=== PATIENT | female | born 1990 | race Caucasian/White ===

== ENCOUNTER 2018-12-18 07:26 | Emergency (ER) | payer MEDICAID ==
--- NOTE | 2018-12-18 07:53 | EDM.PDOC ---
ED HPI GENERAL MEDICAL PROBLEM - General Chief Complaint: ENT Problem Stated Complaint: LEFT SIDE OF FACE PAINS HER Time Seen by Provider: 12/18/18 07:53 Source of Information: Reports: Patient History Limitations: Reports: No Limitations - History of Present Illness INITIAL COMMENTS - FREE TEXT/NARRATIVE: Patient has been having left-sided head pain for the past 2 weeks. It has been getting progressively worse. Patient does have a history of migraines. Pain is a 6-7 out of 10. She says that she has never had a cavity. I did want to do a CT scan of the head and neck to rule out abscess however she is by about 4 or 5 weeks. Therefore I will be treating her empirically for a sphenoid sinus infection. She denies any swallowing of corruption or debris as far as dental abscess. She has 2 kids with her currently. She does find some relief with a warm pack. I did talk to her about the differential diagnosis. She has yet to establish a primary doctor and she will be doing that here shortly. Onset: Gradual Duration: Getting Worse Quality: Reports: Dull, Throbbing Severity: Moderate Improves with: Reports: Heat Therapy Worsens with: Reports: Cold Therapy Context: Denies: Sick Contact Associated Symptoms: Reports: Headaches, Loss of Appetite Treatments [employer]: Reports: Aspirin Left Face/Facial Pain Score (Numeric/FACES): 2 - Related Data Allergies Allergy/AdvReac Type Severity Reaction Status Date / Time nut - unspecified Allergy Other Verified 12/18/18 07:48 Home Meds: Home Meds Amoxicillin/Potassium Clav [Augmentin 875-125 Tablet] 1 each PO BID #14 tablet 12/18/18 [Rx] PNV95/Ferrous Fumarate/FA [ Tablet] 1 each PO DAILY 12/18/18 [History] 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 ED EXAM, DIZZINESS - Physical Exam Exam: See Below Exam Limited By: No Limitations General Appearance: Alert, Moderate Distress Ears: Normal External Exam, Normal Canal, Hearing Grossly Normal, Normal TMs, Mastoid Tenderness. No: Auricular Erythema, Auricular Ecchymosis, Canal Blood Nose: Normal Inspection Throat/Mouth: Normal Inspection Head Exam: Atraumatic, Sinus Tenderness (No TMJ pain per se. Left sphenoid pain. ) Neck: Normal Inspection, Supple, Lymphadenopathy (L) Respiratory/Chest: No Respiratory Distress, Lungs Clear Cardiovascular: Normal Peripheral Pulses, Regular Rate, Rhythm GI/Abdominal: Normal Bowel Sounds, Soft Neurological: Alert, Normal Mood/Affect Psychiatric: Normal Affect Skin Exam: Warm, Dry Course - Vital Signs Last Recorded V/S: Last Vital Signs Temp 36.4 C 12/18/18 07:30 Pulse 103 H 12/18/18 07:30 Resp 16 12/18/18 07:30 BP 105/68 12/18/18 07:30 Pulse Ox 97 12/18/18 07:30 - Orders/Labs/Meds Meds: Medications Discontinued Medications Generic Name Dose Route Start Last Admin Trade Name Freq PRN Reason Stop Dose Admin Ceftriaxone Sodium 1 gm 12/18/18 08:07 12/18/18 08:16 Rocephin IM 12/18/18 08:08 1 gm ONETIME ONE Administration Departure - Departure Time of Disposition: 08:23 Disposition: Home, Self-Care 01 Condition: Good Clinical Impression: Sphenoid sinusitis Qualifiers: Chronicity: acute Recurrence: not specified as recurrent Qualified Code(s): J01.30 - Acute sphenoidal sinusitis, unspecified - Discharge Information *PRESCRIPTION DRUG MONITORING PROGRAM REVIEWED*: No *COPY OF PRESCRIPTION DRUG MONITORING REPORT IN PATIENT SONDRA: Not Applicable Prescriptions: Amoxicillin/Potassium Clav [Augmentin 875-125 Tablet] 1 each PO BID #14 tablet Instructions: Sinusitis, Adult, [id number] Referrals: PCP,None [Primary Care Provider] - Forms: ED Department Discharge, ED Return to Work/School Form Additional Instructions: Emipirical treatment for Sphenoid Sinusitis. Take the antibiotics as written. Recommend Amna Villareal as a primary.
[2018-12-18] MEDS ORDERED: cefTRIAXone 1 GM Vial IM ONE (08:07)
== END 2018-12-18 08:37 | disposition home or self-care (01) ==
LOC: VM.ED 07:26
DX: J01.30 Acute sphenoidal sinusitis, unspecified (principal); Z91.018 Allergy to other foods
CPT/HCPCS: 96372; 99283; J0696

== ENCOUNTER 2019-02-09 02:40 | Emergency (ER) | payer MEDICAID ==
[2019-02-09] MEDS ORDERED: Sodium Chloride 0.9% 1,000 ML IV ONE (02:58)
[2019-02-09] MEDS ORDERED: Ondansetron 8 MG in Sodium Chloride 0.9% 100 ML IV ONE (02:58)
[2019-02-09] MEDS ORDERED: diphenhydrAMINE 50 MG/ML SDV IVPUSH ONE (02:58)
--- NOTE | 2019-02-09 03:04 | EDM.PDOC ---
ED HPI GENERAL MEDICAL PROBLEM - General Chief Complaint: Headache Stated Complaint: Migraine headache, vomiting Time Seen by Provider: 02/09/19 02:54 Source of Information: Reports: Patient - History of Present Illness INITIAL COMMENTS - FREE TEXT/NARRATIVE: Pt presents with migraine RAYO HAs had it for several days Increased pain behind left eye Increased emesis Pt is 11-12 weeks Has hx/o migraine RAYO's Onset: Gradual Duration: Day(s): Location: Reports: Head Quality: Reports: Throbbing Severity: Moderate Associated Symptoms: Reports: Nausea/Vomiting - Related Data Allergies Allergy/AdvReac Type Severity Reaction Status Date / Time nut - unspecified Allergy Other Verified 12/18/18 07:48 Home Meds: Home Meds Pnv No.95/Ferrous Fum/Folic AC [ Tablet] 1 each PO DAILY 12/18/18 [ History] Past Medical History 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: Reports: ED ROS GENERAL - Review of Systems Review Of Systems: See Below Neurological: Reports: Headache - Physical Exam Exam: See Below Exam Limited By: No Limitations General Appearance: Moderate Distress Neck: Supple Cardiovascular: Regular Rate, Rhythm Neuro Exam (Abbreviated): Alert, Oriented, Normal Cognition, No Motor/Sensory Deficits Psychiatric: Normal Affect Course - Orders/Labs/Meds Orders: Active Orders 24 hr Category Date Time Status Ondansetron [Zofran] 8 mg Med 02/09/19 02:58 Active Sodium Chloride 0.9% [Normal Saline] 100 ml IV ONETIME Sodium Chloride 0.9% [Normal Saline] 1,000 ml Med 02/09/19 02:58 Active IV ONETIME diphenhydrAMINE [Benadryl] Med 02/09/19 02:58 Once 50 mg IVPUSH ONETIME ONE Medication Orders Diphenhydramine HCl (Benadryl) 50 mg IVPUSH ONETIME ONE Stop: 02/09/19 02:59 Ondansetron HCl 8 mg/ Sodium (Chloride) 104 mls @ 400 mls/hr IV ONETIME ONE Stop: 02/09/19 03:13 Sodium Chloride (Normal Saline) 1,000 mls @ 999 mls/hr IV ONETIME ONE Stop: 02/09/19 03:58 Meds: Medications Generic Name Dose Route Start Last Admin Trade Name Freq PRN Reason Stop Dose Admin Diphenhydramine HCl 50 mg 02/09/19 02:58 Benadryl IVPUSH 02/09/19 02:59 ONETIME ONE Ondansetron HCl 8 mg/ Sodium 104 mls @ 400 mls/hr 02/09/19 02:58 Chloride IV 02/09/19 03:13 ONETIME ONE Sodium Chloride 1,000 mls @ 999 mls/hr 02/09/19 02:58 Normal Saline IV 02/09/19 03:58 ONETIME ONE - Re-Assessments/Exams Free Text/Narrative Re-Assessment/Exam: 02/09/19 03:02 Pt given IVF, IV Zofran and IV Benadryl in ER Departure - Departure Time of Disposition: 04:30 Disposition: Home, Self-Care 01 Clinical Impression: Migraine - Discharge Information Instructions: Migraine Headache, [id number], Recurrent Migraine Headache, [id number] Additional Instructions: Follow up with usual provider - My Orders Last 24 Hours: My Active Orders 02/09/19 02:58 Ondansetron [Zofran] 8 mg Sodium Chloride 0.9% [Normal Saline] 100 ml IV ONETIME Sodium Chloride 0.9% [Normal Saline] 1,000 ml IV ONETIME diphenhydrAMINE [Benadryl] 50 mg IVPUSH ONETIME ONE - Assessment/Plan Last 24 Hours: My Active Orders 02/09/19 02:58 Ondansetron [Zofran] 8 mg Sodium Chloride 0.9% [Normal Saline] 100 ml IV ONETIME Sodium Chloride 0.9% [Normal Saline] 1,000 ml IV ONETIME diphenhydrAMINE [Benadryl] 50 mg IVPUSH ONETIME ONE
[2019-02-09] MEDS ORDERED: Ondansetron 4 MG/2 ML SDV IVPUSH ONE ×2 (03:13→03:40)
== END 2019-02-09 04:15 | disposition home or self-care (01) ==
LOC: VM.ED 02:40
DX: O99.351 Diseases of the nervous system complicating pregnancy, first trimester (principal); G43.909 Migraine, unspecified, not intractable, without status migrainosus; Z3A.11 11 weeks gestation of pregnancy; Z91.018 Allergy to other foods
CPT/HCPCS: 96361; 96374; 96375; 96376; 99284-25; J1200; J2405; J7030